=== PATIENT | female | born 1955 | race Caucasian/White ===

== ENCOUNTER → 2017-10-01 | Outpatient (CLI) | payer OTHER ==
--- NOTE | 2017-10-01 22:18 | Diagnostic Imaging Report ---
Bilateral screening mammogram 2D views with tomosynthesis The current study was also evaluated with a Computer Aided Detection (CAD) system. INDICATION: Screening. No current complaints stated on the questionnaire. COMPARISON: 09/28/2016. FINDINGS: The breasts are composed of scattered fibroglandular densities. Scattered benign-appearing calcifications are seen. Allowing for technique and positional differences, no suspicious change is seen. IMPRESSION: No significant change. ACR BI-RADS Category 2: Benign findings. Result letter will be mailed to the patient. Note: At least 10% of breast cancer is not imaged by mammography. Dictated by: Dictated on workstation # [id number]
== END ==
LOC: RAD 09:44
PROVIDERS: ATTEND Registered Nurse
DX: Z12.31 Encounter for screening mammogram for malignant neoplasm of breast (principal)
CPT/HCPCS: 77067

== ENCOUNTER → 2018-11-14 | Outpatient (CLI) | payer BC, OTHER ==
--- NOTE | 2018-11-14 12:36 | Diagnostic Imaging Report ---
INDICATION: Postmenopausal screening for osteoporosis. COMPARISON: None. FINDINGS: AP Spine L1-L4: [BMD (g/cm2): 0.852] [T-Score: -2.9] [Z-Score: -1.6] [BMD Previous: na] [BMD % Change: na] LT Hip Neck: [BMD (g/cm2): 0.820] [T-Score: -1.6] [Z-Score: -0.3] LT Hip Total: [BMD (g/cm2):0.808] [T-Score:-1.6] [Z-Score: -0.6] [BMD Previous: na] [BMD % Change: na] RT Hip Neck: [BMD (g/cm2):0.785] [T-Score:-1.8] [Z-Score:-0.5] RT Hip Total: [BMD (g/cm2):0.786] [T-score:-1.8] [Z-Score:-0.8] [BMD Previous:na] [BMD % Change:na] *Indicates significant change from prior examination based on 95% confidence level. World Health Organization criteria for BMD interpretation classify patients as Normal (T-score at or above -1.0), Osteopenic (T-score between -1.0 and -2.5) or Osteoporotic (T-score at or below -2.5). LIMITATIONS AND MODIFICATION: None. FRACTURE RISK (FRAX SCORE): The ten year probability of (%): Major Osteoporotic Fracture: [9.4] Hip Fracture: [1.1] IMPRESSION: 1. Osteoporosis. 2. Baseline examination. 3. See below National Osteoporosis Foundation guidelines on when to potentially initiate pharmacologic therapy. Based on the National Osteoporosis Foundation Guidelines, pharmacologic treatment should be initiated in any of the following, unless clinical conditions suggest otherwise: * Any patient with prior fragility fracture of the hip or vertebrae. A spine fracture indicates 5X risk for subsequent spine fracture and 2X risk for subsequent hip fracture. * Osteoporosis (T-score <-2.5). * Postmenopausal women and men age 50 and older with low bone mass/osteopenia (T-score between -1.0 and -2.5) by DXA and 10-year major osteoporotic fracture greater than 20% or a 10-year probability of hip fracture greater than 3%. These fracture risks are supplied above in the FRAX score, if applicable. * Clinician judgement and/or patient preferences may indicate treatment for people with 10-year fracture probabilities above or below these levels. Dictated by: Dictated on workstation # [id number]
--- NOTE | 2018-11-14 21:18 | Diagnostic Imaging Report ---
INDICATION: Routine screening. Comparison is made with prior mammogram from 10/01/2017 and 09/28/2016. 2-D and 3-D bilateral screening mammography was performed with CAD. The current study was also evaluated with a Computer Aided Detection (CAD) system. FINDINGS: Scattered fibroglandular densities are identified bilaterally. The parenchymal pattern appears to be stable. No dominant mass or malignant-appearing microcalcifications are seen. The axillae are unremarkable. IMPRESSION: No mammographic features suspicious for malignancy are identified. ACR BI-RADS Category 2: Benign findings. Result letter will be mailed to the patient. Note: At least 10% of breast cancer is not imaged by mammography. Dictated by: Dictated on workstation # [id number]
== END ==
LOC: RAD 07:35
PROVIDERS: ATTEND Registered Nurse
DX: Z12.31 Encounter for screening mammogram for malignant neoplasm of breast (principal); Z13.820 Encounter for screening for osteoporosis; M81.0 Age-related osteoporosis without current pathological fracture; Z78.0 Asymptomatic menopausal state
CPT/HCPCS: 77067; 77080

== ENCOUNTER 2019-03-15 17:59 | Emergency (ER) | payer BC ==
[~2019-03-15] VITALS: Ht 157.5 cm; Wt 69.4 kg
--- OUTSIDE RECORDS SUMMARY | 2019-03-15 18:04 | XMS REPORT ---
Author Author BRIANNA JUAREZ Organization [facility] Address [address] [place] [address] Care Team Providers Care Sign Shop Supervisor Name Role Phone BRIANNA JUAREZ Unavailable PROBLEMS Unknown Problems ALLERGIES Substance Reaction Event Type Date Status Paxil headache Drug Allergy Jun, Active Cipro anaphylaxis Drug Allergy Jun, Active ENCOUNTERS Encounter Location Date Diagnosis [facility] [address] [facility] [id number] [address] Jun, Impacted cerumen of both ears H61.23 and Dizziness R42 IMMUNIZATIONS No Known Immunizations SOCIAL HISTORY Never Assessed REASON FOR VISIT right ear has been feeling full over the past 2 weeks. now she is very dizzy thi s am. ioana, pt reports she is a very anxious person when she goes to the d r...thinks her BP will be elevated PLAN OF CARE Activity Details Follow Up prn Reason: VITAL SIGNS Height 62 in 2018-07-27 Weight 154.4 lbs 2018-07-27 Temperature 98.2 degrees Fahrenheit 2018-07-27 Heart Rate 82 bpm 2018-07-27 Respiratory Rate 20 2018-07-27 BMI 28.24 kg/m2 2018-07-27 Blood pressure systolic 156 mmHg 2018-07-27 Blood pressure diastolic 90 mmHg 2018-07-27 MEDICATIONS Medication Instructions Dosage Frequency Start Date End Date Duration Status Lisinopril 20 MG Orally Once a day 1 tablet 24h 30 day(s) Active Meclizine HCl 25 MG Orally every 8 hours 1 tablet as needed 8h Jun, 5 days Active RESULTS No Results PROCEDURES No Known procedures INSTRUCTIONS MEDICATIONS ADMINISTERED No Known Medications MEDICAL (GENERAL) HISTORY Type Description Date Medical History HTN Surgical History LSO Surgical History Gallbladder
--- OUTSIDE RECORDS SUMMARY | 2019-03-15 18:04 | XMS REPORT | Continuity of Care Document ---
Author Organization Unknown Address Unknown Allergies Active Description Code Type Severity Reaction Onset Reported/Identified Relationship to Patient Clinical Status Yes CIPRO UNKNOWN UNKNOWN Yes METHYSERGIDE (BULK) UNKNOWN UNKNOWN Yes PAXIL UNKNOWN UNKNOWN Medications There is no data. Problems Date Dx Coded Attending Type Code Diagnosis Diagnosed By 10/12/2014 BEN SAMPSON ELECTRICAL EQUIPMENT TESTER Ot V76.12 09/20/2015 BEN SAMPSON ELECTRICAL EQUIPMENT TESTER Ot V76.12 09/20/2015 BEN SAMPSON ELECTRICAL EQUIPMENT TESTER Ot V76.12 09/29/2015 RIZWANA SPENCER ELECTRICAL EQUIPMENT TESTER Ot Z12.31 12/15/2015 RIZWANA SPENCER ELECTRICAL EQUIPMENT TESTER Ot Z12.31 09/29/2016 CHRIS VAIL ELECTRICAL EQUIPMENT TESTER Ot Z12.31 ENCNTR SCREEN MAMMOGRAM FOR MALIGNANT NE 10/04/2016 GENNA, CHRIS H ELECTRICAL EQUIPMENT TESTER Ot Z12.31 ENCNTR SCREEN MAMMOGRAM FOR MALIGNANT NE 10/09/2016 CHRIS VAIL ELECTRICAL EQUIPMENT TESTER Ot Z12.31 ENCNTR SCREEN MAMMOGRAM FOR MALIGNANT NE 10/07/2017 GENNA, CHRIS H ELECTRICAL EQUIPMENT TESTER Ot Z12.31 ENCNTR SCREEN MAMMOGRAM FOR MALIGNANT NE 10/12/2017 CHRIS VAIL H ELECTRICAL EQUIPMENT TESTER Ot Z12.31 ENCNTR SCREEN MAMMOGRAM FOR MALIGNANT NE 11/29/2017 Genna Magda W 684 IMPETIGO 11/29/2017 Genna, Magda W L01.00 IMPETIGO, UNSPECIFIED 11/29/2017 Genna, Magda W 684 IMPETIGO 11/29/2017 Genna, Magda W L01.00 IMPETIGO, UNSPECIFIED 10/10/2018 Magda Vail W V70.0 ROUTINE GENERAL MEDICAL EXAMINATION AT A HEALTH CARE FACILITY 10/10/2018 Magda Vail W Z00.00 ENCNTR FOR GENERAL ADULT MEDICAL EXAM W/O ABNORMAL FINDINGS 10/10/2018 Genna, Magda W V70.0 ROUTINE GENERAL MEDICAL EXAMINATION AT A [facility] CARE FAC[facility] 10/10/2018 Magda Vail W Z00.00 ENCNTR FOR GENERAL ADULT MEDICAL EXAM W/O ABNORMAL FINDINGS 11/07/2018 SAMPSONBEN HAIDER ELECTRICAL EQUIPMENT TESTER Ot V76.12 OTH SCREEN MAMMO-MALIGN NEOPLASM OF IRMA 11/07/2018 SAMPSONBEN ELECTRICAL EQUIPMENT TESTER Ot V76.12 OTH SCREEN MAMMO-MALIGN NEOPLASM OF IRMA 11/07/2018 RIZWANA SPENCER ELECTRICAL EQUIPMENT TESTER Ot Z12.31 ENCNTR SCREEN MAMMOGRAM FOR MALIGNANT NE 11/13/2018 SAMPSONBEN ELECTRICAL EQUIPMENT TESTER Ot V76.12 OTH SCREEN MAMMO-MALIGN NEOPLASM OF IRMA 11/13/2018 SAMPSONBEN ELECTRICAL EQUIPMENT TESTER Ot V76.12 OTH SCREEN MAMMO-MALIGN NEOPLASM OF IRMA 11/13/2018 RIZWANA SPENCER ELECTRICAL EQUIPMENT TESTER Ot Z12.31 ENCNTR SCREEN MAMMOGRAM FOR MALIGNANT NE 11/14/2018 SAMPSONBEN HAIDER ELECTRICAL EQUIPMENT TESTER Ot V76.12 OTH SCREEN MAMMO-MALIGN NEOPLASM OF IRMA 11/14/2018 SAMPSONBEN ELECTRICAL EQUIPMENT TESTER Ot V76.12 OTH SCREEN MAMMO-MALIGN NEOPLASM OF IRMA 11/14/2018 RIZWANA SPENCER ELECTRICAL EQUIPMENT TESTER Ot Z12.31 ENCNTR SCREEN MAMMOGRAM FOR MALIGNANT NE 11/15/2018 CHRIS VAIL H ELECTRICAL EQUIPMENT TESTER Ot M81.0 AGE-RELATED OSTEOPOROSIS W/O CURRENT PAT 11/15/2018 CHRIS VAIL H ELECTRICAL EQUIPMENT TESTER Ot Z12.31 ENCNTR SCREEN MAMMOGRAM FOR MALIGNANT NE 11/15/2018 CHRIS VAIL H ELECTRICAL EQUIPMENT TESTER Ot Z13.820 ENCOUNTER FOR SCREENING FOR OSTEOPOROSIS 11/15/2018 VIRGEN VAILHRYN H ELECTRICAL EQUIPMENT TESTER Ot Z78.0 ASYMPTOMATIC MENOPAUSAL STATE 12/05/2018 VIRGEN VAILHRYN H ELECTRICAL EQUIPMENT TESTER Ot M81.0 AGE-RELATED OSTEOPOROSIS W/O CURRENT PAT 12/05/2018 CHRIS VAIL H ELECTRICAL EQUIPMENT TESTER Ot Z12.31 ENCNTR SCREEN MAMMOGRAM FOR MALIGNANT NE 12/05/2018 CHRIS VAIL H ELECTRICAL EQUIPMENT TESTER Ot Z13.820 ENCOUNTER FOR SCREENING FOR OSTEOPOROSIS 12/05/2018 CHRIS VAIL H ELECTRICAL EQUIPMENT TESTER Ot Z78.0 ASYMPTOMATIC MENOPAUSAL STATE Procedures There is no data. Results Test Result Range Comprehensive Metabolic Panel - 08/30/17 09:00 Albumin 4.3 g/dL 3.6-5.1 ALP 90 U/L 35-130 ALT 18 U/L 6-45 Anion Gap 17 6-14 AST 21 U/L 2-40 BUN 12 mg/dL 5-25 Calcium 9.7 mg/dL 8.3-10.4 Chloride 106 mmol/L 95-114 CO2 24 mEq/L 22-33 Creat 0.82 mg/dL 0.50-1.50 eGFR 71 mL/min/1.73m2 >59 Globulin 2.8 g/dL 2.3-3.5 Glucose 101 mg/dL 70-110 Osmo 295 280-295 Potassium 4.1 mmol/L 3.5-5.3 Sodium 143 mmol/L 134-148 TBil 0.7 mg/dL 0.2-1.2 TP 7.1 g/dL 6.0-8.3 Lipid Panel - 08/30/17 09:00 C/HDL 3.6 3.7-6.7 Cholesterol 226 mg/dL 100-240 HDL 62 mg/dL 30-85 LDL-Calculated 143 mg/dL 0-100 Trig 104 mg/dL 35-160 VLDL 21 mg/dL 0-42 Hepatitis Panel, Acute - 08/30/17 09:00 Hep A Ab, IgM NEGATIVE NEGATIVE HBsAg Screen NEGATIVE NEGATIVE Hep B Core Ab, IgM NEGATIVE NEGATIVE Hep C Virus Ab <0.1 S/CO RATIO 0.0-0.9 Hepatitis Panel (4) - 08/30/17 09:00 HBsAg Screen Negative Negative Hep A Ab, IgM Negative Negative Hep B Core Ab, IgM Negative Negative Hep C Virus Ab <0.1 s/co ratio 0.0-0.9 Other Culture - 11/29/17 10:30 PRELIM CULTURE RESULTS No Growth 24 hours FINAL CULTURE RESULTS No Growth 48 hours MEDIA PLATED Setup at 16:01 on 11/29/2017 Other Culture - 11/29/17 15:52 PRELIM CULTURE RESULTS No Growth 24 hours FINAL CULTURE RESULTS No Growth 48 hours MEDIA PLATED Setup at 16:01 on 11/29/2017 Pap IG (Image Guided) - 10/10/18 10:30 DIAGNOSIS: Comment Specimen adequacy: Comment Performed by: Comment QC reviewed by: Comment . . Note: Comment Test Methodology: Comment Thyroid Stimulating Hormone - 10/10/18 10:30 TSH 2.38 mIU/mL 0.32-5.00 Encounters ACCT No. Visit Date/Time Discharge Status Pt. Type Provider Facility Loc./Unit Complaint [id number] 11/14/2018 07:35:00 11/14/2018 23:59:59 CLS Outpatient GENNA, CHRIS H ELECTRICAL EQUIPMENT TESTER [facility] RAD WELLNESS EXAM,SCREENING [id number] 10/01/2017 09:44:00 10/01/2017 23:59:59 CLS Outpatient GENNA, CHRIS H ELECTRICAL EQUIPMENT TESTER [facility] RAD SCREENING [id number] 09/28/2016 09:54:00 09/28/2016 23:59:59 CLS Outpatient GENNA, CHRIS H ELECTRICAL EQUIPMENT TESTER [facility] RAD SCREENING [id number] 09/27/2015 10:40:00 09/27/2015 23:59:59 CLS Outpatient RIZWANA SPENCER ELECTRICAL EQUIPMENT TESTER [facility] RAD ROUTINE SCREENING [id number] 09/10/2014 14:59:00 09/10/2014 23:59:59 CLS Outpatient BEN SAMPSON ELECTRICAL EQUIPMENT TESTER [facility] RAD ROUTINE [id number] 08/29/2013 14:17:00 08/29/2013 23:59:59 CLS Outpatient BEN SAMPSON ELECTRICAL EQUIPMENT TESTER [facility] RAD SCREENING [id number] 03/15/2019 18:01:00 ACT Emergency ANNABELLA GILMORE, MICKY Bazzi [facility] ER FREQUENT URINATING WITH BURNING AND PAIN [id number] 10/10/2018 11:08:00 10/10/2018 23:59:00 DIS Outpatient Magda Vail [id number] 11/29/2017 12:03:00 11/29/2017 23:59:00 DIS Outpatient Genna Magda [id number] 08/30/2017 09:39:00 08/30/2017 23:59:00 DIS Outpatient Monster Henderson [id number] 10/10/2018 11:48:58 Document Registration [id number] 10/15/2018 08:45:00 Document Registration [id number] 09/01/2017 12:11:00 Document Registration [id number] 10/10/2018 11:08:00 Document Registration
[2019-03-15 18:30] LABS: BACTERIA,URINE TRACE /HPF; BILIRUBIN,URINE NEGATIVE (NEGATIVE); CLARITY,URINE CLEAR; COLOR,URINE YELLOW; GLUCOSE, URINE (UA) NEGATIVE (NEGATIVE); KETONES,URINE NEGATIVE (NEGATIVE); LEUKOCYTE ESTERASE ,URINE 3+ (NEGATIVE); NITRITE,URINE NEGATIVE (NEGATIVE); PH,URINE 7 (5-9); PROTEIN,URINE NEGATIVE (NEGATIVE); RBC,URINE RARE /HPF; SQUAMOUS EPITHELIAL CELL,UR RARE /HPF; UROBILINOGEN,URINE NORMAL (NORMAL)
[2019-03-15] MEDS ORDERED: PHENAZOPYRIDINE 100 MG (PYRIDIUM) TABLET PO ONE (18:45)
[2019-03-15] MEDS ORDERED: CEPHALEXIN 250 MG (KEFLEX) CAP PO ONE (18:45)
[2019-03-15] MEDS ORDERED: CEPH-507 PO (18:49)
[2019-03-15] MEDS ORDERED: PHEN-640 PO (18:49)
--- NOTE | 2019-03-15 18:49 | ED GU-Female ---
General Chief Complaint: - Urinary Stated Complaint: FREQUENT URINATING WITH BURNING AND PAIN Nursing Triage Note: FREQUENCY, URGENCY, BURNING AND PAIN WITH URINATION ONSET THIS AM. PT HISTORY OF UTI A FEW YEARS AGO. Nursing Sepsis Screen: No Definite Risk Source: patient Exam Limitations: no limitations History of Present Illness Date Seen by Provider: March 15, 2019 Time Seen by Provider: 18:08 Initial Comments This 63 year old woman ambulates into the ER with complaints of dysuria and urinary frequency starting this morning. She is concerned she has a urinary tract infection. She denies fever or other systemic symptoms. She is noted to be hypertensive but states she easily develops white coat hypertension. She monitors her blood pressure at home and reports it is in the 120s systolic this morning. Allergies and Home Medications Allergies Coded Allergies: ciprofloxacin (Verified Allergy, Unknown, 03/15/19) Home Medications Cephalexin 500 Mg Capsule, 500 MG PO TID Prescribed by: ALEXANDR COHN on 03/15/191848 Phenazopyridine HCl 200 Mg Tablet, 1 TAB PO TID PRN for PAIN-MODERATE TO SEVERE Prescribed by: ALEXANDR COHN on 03/15/191848 Patient Home Medication List Home Medication List Reviewed: Yes Review of Systems Review of Systems Constitutional: no symptoms reported EENTM: no symptoms reported Respiratory: no symptoms reported Cardiovascular: no symptoms reported Gastrointestinal: no symptoms reported Genitourinary: see HPI Musculoskeletal: no symptoms reported Skin: no symptoms reported Psychiatric/Neurological: No Symptoms Reported Endocrine: No Symptoms Reported Hematologic/Lymphatic: No Symptoms Reported Past Cqdziha-Hvtdvi-Ukoibs Hx Patient Social History Alcohol Use: Denies Use Recreational Drug Use: No Smoking Status: Unknown if Ever Smoked Recent Foreign Travel: No Contact w/Someone Who Travel: No Recent Infectious Disease Expo: No Recent Hopitalizations: No Physical Abuse: No Sexual Abuse: No Mistreated: No Fear: No Seasonal Allergies Seasonal Allergies: No Past Medical History Surgeries: No Respiratory: No Cardiac: Yes Hypertension Neurological: No Genitourinary: No Gastrointestinal: No Musculoskeletal: No Endocrine: No HEENT: No Cancer: No Psychosocial: No Integumentary: No Physical Exam Vital Signs Vital Signs - First Documented 03/15/19 03/15/19 18:06 19:06 Temp 97.6 Pulse 109 Resp 18 B/P (MAP) 212/85 (127) Pulse Ox 97 O2 Delivery Room Air Capillary Refill : Less Than 3 Seconds Height, Weight, BMI Height: 5'2.00" Weight: 153lbs. oz. 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, no motor/sensory deficits, alert, normal mood/affect, oriented x 3 Skin: normal color, warm/dry Progress/Results/Core Measures Suspected Sepsis Recent Fever Within 48 Hours: No Infection Criteria Present: Suspected New Infection New/Unexplained Altered Menta: No Sepsis Screen: No Definite Risk SIRS Temperature:97.6 Pulse: 109 Respiratory Rate: 18 Blood Pressure 212 /85 Mean: 127 Results/Orders Lab Results Laboratory Tests Test 03/15/19 18:16 Range/Units Urine Color YELLOW Urine Clarity CLEAR Urine pH 7 5-9 Urine Specific [place] 1.005 L 1.016-1.022 Urine Protein NEGATIVE NEGATIVE Urine Glucose (UA) NEGATIVE NEGATIVE Urine Ketones NEGATIVE NEGATIVE Urine Nitrite NEGATIVE NEGATIVE Urine Bilirubin NEGATIVE NEGATIVE Urine Urobilinogen NORMAL NORMAL MG/DL Urine Leukocyte Esterase 3+ H NEGATIVE Urine RBC (Auto) 5+ H NEGATIVE Urine RBC RARE /HPF Urine WBC 10-25 H /HPF Urine Squamous Epithelial Cells RARE /HPF Urine Crystals NONE /LPF Urine Bacteria TRACE /HPF Urine Casts NONE /LPF Urine Mucus NEGATIVE /LPF Urine Culture Indicated YES My Orders Orders - ALEXANDR ALEJO MD Ua Culture If Indicated (03/15/19 18:08) Urine Culture (03/15/19 18:16) Cephalexin Capsule (Keflex Capsule) (03/15/19 18:45) Phenazopyridine Tablet (Pyridium Tablet) (03/15/19 18:45) Vital Signs/I&O Capillary Refill : Less Than 3 Seconds Blood Pressure Mean: 127 Progress Note : Progress Note Patient's urine analysis was suspicious for urinary tract infection. Patient was treated with Pyridium and Keflex. Prescriptions were provided. Departure Impression Primary Impression: Urinary tract infection Qualified Codes: N39.0 - Urinary tract infection, site not specified Disposition: HOME, SELF-CARE Condition: Improved Departure-Patient Inst. Decision time for Depature: 18:45 Referrals: [facility] (PCP/Family) Primary Care Physician Patient Instructions: Urinary Tract Infection, Adult (DC) Add. Discharge Instructions: Drink plenty of clear liquids. Complete your antibiotics as prescribed. Use Pyridium if needed for bladder pain. You may also use Tylenol and/or ibuprofen. Follow-up on your urine culture results on Sunday or Sunday either through the ER or your primary care provider. This will ensure you're taking an appropriate antibiotic for your infection. Return to care if you have worsening symptoms. All discharge instructions reviewed with patient and/or family. Voiced understanding. Scripts Cephalexin (Keflex) 500 Mg Capsule 500 MG PO TID, #20 CAP Prov: ALEXANDR ALEJO MD 03/15/19 Phenazopyridine HCl (Pyridium) 200 Mg Tablet 1 TAB PO TID PRN for PAIN-MODERATE TO SEVERE, #10 TAB Prov: ALEXANDR ALEJO MD 03/15/19 ALEXANDR ALEJO MD March 15, 2019 18:49
[2019-03-15 19:06] VITALS: BP 190/84
== END 2019-03-15 19:07 | disposition home or self-care (01) ==
LOC: EDUNIT# 17:59 → ER 18:01
DX: N39.0 Urinary tract infection, site not specified (principal); I10 Essential (primary) hypertension; Z88.1 Allergy status to other antibiotic agents
CPT/HCPCS: 81000; 87077; 87088; 87186; 99283

== ENCOUNTER → 2020-04-02 | Outpatient (CLI) | payer BC, OTHER ==
[~2020-04-02] MED LIST: CEPH-507 PO; PHEN-640 PO
--- NOTE | 2020-04-02 13:48 | Diagnostic Imaging Report ---
INDICATION: Screening. EXAMINATION: Digital 2-D and 3-D digital screening with CAD. COMPARISONS: 10/2018,09/2017 and 09/2016 FINDINGS: Scattered fibroglandular densities unchanged. No breast mass, architectural distortions, spiculated lesion or suspicious calcifications. IMPRESSION: 1. Stable negative mammogram. BI-RADS Category 1. ACR BI-RADS Category 1: Negative. Result letter will be mailed to the patient. Note: At least 10% of breast cancer is not imaged by mammography. Dictated by: Dictated on workstation # [id number]
== END ==
LOC: RAD 09:17
PROVIDERS: ATTEND Registered Nurse
DX: Z12.31 Encounter for screening mammogram for malignant neoplasm of breast (principal)
CPT/HCPCS: 77063; 77067

== ENCOUNTER → 2021-05-17 | Outpatient (CLI) | payer OTHER ==
--- NOTE | 2021-05-17 14:17 | Diagnostic Imaging Report ---
INDICATION: 2-D and 3-D digital screening with CAD. COMPARED: 03/2020, 10/2018 and 09/2017 FINDINGS: Scattered fibroglandular densities in the breast are present. There is no breast mass, spiculated lesion, architectural distortion or suspicious calcifications. There has been no interval change and no findings to suggest a breast cancer. IMPRESSION: Stable negative mammogram BI-RADS Category 1 ACR BI-RADS Category 1: Negative. Result letter will be mailed to the patient. Note: At least 10% of breast cancer is not imaged by mammography. Dictated by: Dictated on workstation # [id number]
== END ==
LOC: RAD 09:00
PROVIDERS: ATTEND Registered Nurse
DX: Z12.31 Encounter for screening mammogram for malignant neoplasm of breast (principal); Z00.00 Encounter for general adult medical examination without abnormal findings
CPT/HCPCS: 77063; 77067

== ENCOUNTER → 2022-09-15 | Outpatient (CLI) | payer MEDICARE, OTHER ==
--- NOTE | 2022-09-15 12:23 | Diagnostic Imaging Report ---
INDICATION: Routine screening. Comparison is made with prior mammogram 05/17/2021 and 04/02/2020. 2-D and 3-D bilateral screening mammography was performed with CAD. CAD is utilized. The current study was also evaluated with a Computer Aided Detection (CAD) system. Scattered fibroglandular densities are identified bilaterally. The parenchymal pattern is stable. No mass or malignant-appearing microcalcifications are seen. There are benign calcifications present. Axillae are unremarkable. IMPRESSION: BI-RADS Category 2 No mammographic features suspicious for malignancy are identified. ACR BI-RADS Category 2: Benign findings. Result letter will be mailed to the patient. Note: At least 10% of breast cancer is not imaged by mammography. Dictated by: Dictated on workstation # [id number]
== END ==
LOC: RAD 07:32
PROVIDERS: ATTEND Registered Nurse
DX: Z12.31 Encounter for screening mammogram for malignant neoplasm of breast (principal)
CPT/HCPCS: 77063; 77067

== ENCOUNTER → 2023-09-25 | Outpatient (CLI) | payer MEDICARE ==
--- NOTE | 2023-09-25 14:57 | Diagnostic Imaging Report ---
INDICATION: Routine screening. COMPARISON: 09/15/2022 and 05/17/2021. TECHNIQUE: 2D and 3D bilateral screening mammography was performed with CAD. FINDINGS: Scattered fibroglandular densities are identified bilaterally. The parenchymal pattern is stable. No mass or malignant-appearing microcalcifications are identified. There are scattered benign calcifications. Axillae are unremarkable. IMPRESSION: No mammographic features suspicious for malignancy are identified. ACR BI-RADS Category 2: Benign findings. Result letter will be mailed to the patient. Note: At least 10% of breast cancer is not imaged by mammography. Dictated by: Dictated on workstation # [id number]
== END ==
LOC: RAD 14:00
PROVIDERS: ATTEND Registered Nurse
DX: Z12.31 Encounter for screening mammogram for malignant neoplasm of breast (principal)
CPT/HCPCS: 77063; 77067